=== PATIENT | male | born 2000 | race Two or more races ===

== ENCOUNTER 2024-05-04 17:35 | Emergency (ER) | payer OTHER ==
[~2024-05-04] VITALS: Ht 170.2 cm; Wt 65.8 kg
[2024-05-04 18:00] VITALS: BP 159/88; TEMP 98.6; O2SAT 99
[2024-05-04] MEDS ORDERED: TDAP [DIPH/PERTUSSIS/TET] 0.5 ML VIAL IM ONE (18:10)
[2024-05-04] MEDS: TDAP [DIPH/PERTUSSIS/TET] 0.5 ML VIAL IM ONE (18:15)
[2024-05-04] MEDS ORDERED: LIDOCAINE 1%-EPI 1:100,000 20 ML VIAL ONE (18:18)
[2024-05-04] MEDS ORDERED: LIDOCAINE 1% INJ 50 ML MDV IJ ONE (18:24)
[2024-05-04] MEDS ORDERED: SULF1TAB48 PO (19:34)
== END 2024-05-04 19:44 | disposition home or self-care (01) ==
LOC: ER 17:41
DX: S61.012A Laceration without foreign body of left thumb without damage to nail, initial encounter (principal); W27.0XXA Contact with workbench tool, initial encounter; Y93.89 Activity, other specified; Y92.89 Other specified places as the place of occurrence of the external cause; Y99.0 Civilian activity done for income or pay
CPT/HCPCS: 12002; 73140; 90471; 90715; 99283; A6403; J3490

== ENCOUNTER 2024-05-11 07:52 | Emergency (ER) | payer OTHER ==
[~2024-05-11] VITALS: Ht 170.2 cm; Wt 65.8 kg
[~2024-05-11 07:52] MED LIST: SULF1TAB48 PO
[2024-05-11 08:02] VITALS: BP 125/72; TEMP 98
[2024-05-11 09:15] VITALS: O2SAT 99
== END 2024-05-11 09:16 | disposition home or self-care (01) ==
LOC: ER 07:54
DX: S61.012D Laceration without foreign body of left thumb without damage to nail, subsequent encounter (principal); Z48.02 Encounter for removal of sutures; X58.XXXD Exposure to other specified factors, subsequent encounter